=== PATIENT | male | born 1990 | race Two or more races ===

== ENCOUNTER 2019-06-14 10:24 | Emergency (ER) | payer OTHER ==
[~2019-06-14] VITALS: Ht 177.8 cm; Wt 95.3 kg
[2019-06-14] MEDS ORDERED: LANTUS SOL100 UNIT/1 (10:47)
[2019-06-14] MEDS ORDERED: HUMALOG KW100 UNIT/1 (10:47)
== END 2019-06-14 14:46 | disposition home or self-care (01) ==
LOC: ER 10:24
DX: S82.65XA Nondisplaced fracture of lateral malleolus of left fibula, initial encounter for closed fracture (principal); X50.0XXA Overexertion from strenuous movement or load, initial encounter; Y93.89 Activity, other specified; Y92.89 Other specified places as the place of occurrence of the external cause; Y99.8 Other external cause status

== ENCOUNTER 2024-05-25 10:27 | Emergency (ER) | payer OTHER ==
[~2024-05-25] VITALS: Ht 167.6 cm; Wt 89.8 kg
[~2024-05-25 10:27] MED LIST: HUMALOG KW100 UNIT/1; LANTUS SOL100 UNIT/1
[2024-05-25 12:23] LABS: HEMATOCRIT 45.5 % (39.0-48.0); HEMOGLOBIN 16.1 g/dL (13-16.00); MEAN CELL VOLUME 96.2 fL (80.0-100.00); MEAN CORPUSCULAR HEMOGLOBIN 33.9 pg (27.00-32.0); MEAN CORPUSCULAR HGB CONC 35.3 g/dl (32.0-36.0); PLATELET COUNT 231 K/uL (150-450); RED BLOOD COUNT 4.73 M/uL (4.00-6.00)
[2024-05-25] MEDS ORDERED: KETOROLAC TROMETHAMINE 60 MG VIAL IM ONE ×2 (12:52→13:00)
[2024-05-25 12:53] LABS: ALBUMIN 4.1 gm/dL (3.4-5.0); BILIRUBIN TOTAL 0.79 mg/dL (0.3-1.2); BILIRUBIN,CONJUGATED 0.21 mg/dL (0.0-0.2); BILIRUBIN,UNCONJUGATED 0.58 mg/dL (0.0-0.6); CALCIUM 9.9 mg/dL (8.5-10.1); CREATININE SERUM 1.17 mg/dL (0.70-1.30); GFR 72.24; POTASSIUM 4.5 mEq/L (3.5-5.1); TOTAL PROTEIN 7.3 gm/dL (6.4-8.2)
[2024-05-26] MEDS ORDERED: CARAFATE1 GM/10 ML PO (14:23)
[2024-05-26] MEDS ORDERED: ONDANSETRON ODT4 MG PO (14:23)
== END 2024-05-25 15:21 | disposition home or self-care (01) ==
LOC: ER 10:28
PROVIDERS: General Practice
DX: K29.70 Gastritis, unspecified, without bleeding (principal); R10.11 Right upper quadrant pain; Z91.013 Allergy to seafood; E11.65 Type 2 diabetes mellitus with hyperglycemia; Z79.4 Long term (current) use of insulin

== ENCOUNTER 2024-05-26 09:08 | Emergency (ER) | payer OTHER ==
[~2024-05-26] VITALS: Ht 177.8 cm; Wt 89.8 kg
[2024-05-26] MEDS ORDERED: FAMOTIDINE/PF 20 MG/2 ML VIAL IV ONE (09:45)
[2024-05-26] MEDS ORDERED: ONDANSETRON HCL 2 MG/ML VIAL IV ONE (09:45)
[2024-05-26] MEDS ORDERED: 0.9 % SODIUM CHLORIDE 500 ML IV SCH (09:45)
[2024-05-26] MEDS ORDERED: ONDANSETRON HCL 2 MG/ML VIAL ONE (09:51)
[2024-05-26] MEDS ORDERED: FAMOTIDINE/PF 20 MG/2 ML VIAL ONE (09:51)
[2024-05-26] MEDS ORDERED: MORPHINE SULFATE 2 MG/ML CARTRIDGE IV ONE (11:45)
[2024-05-26 11:46] LABS: HEMATOCRIT 44.9 % (39.0-48.0); HEMOGLOBIN 15.7 g/dL (13-16.00); MEAN CELL VOLUME 95.7 fL (80.0-100.00); MEAN CORPUSCULAR HEMOGLOBIN 33.4 pg (27.00-32.0); MEAN CORPUSCULAR HGB CONC 34.9 g/dl (32.0-36.0); PLATELET COUNT 277 K/uL (150-450); RED CELL DISTRIBUTION WIDTH 12.6 % (11.5-14.5)
[2024-05-26 12:39] LABS: URINE APPEARANCE Clear; URINE BILIRRUBIN Negative (NEGATIVE); URINE BLOOD Negative; URINE COLOR Yellow; URINE LEUKOCYTE Negative; URINE NITRATE Negative; URINE PROTEIN Negative (NEGATIVE); URINE UROBILINOGEN 0.2 E.U./dl
[2024-05-26 12:43] LABS: URINE BACTERIA 35.2 uL (0.0-1933); URINE EPITHELIAL CELLS 3.2 uL (0.0-38.8); URINE WBC 8.6 uL (0.0-23.2)
[2024-05-26 12:49] LABS: URINE GLUCOSE >=1000 MG/DL (NEGATIVE); URINE RBC 0.9 uL (0.0-20.8)
[2024-05-26 13:33] LABS: CALCIUM 9.8 mg/dL (8.5-10.1); CREATININE SERUM 1.16 mg/dL (0.70-1.30); GFR 72.96; POTASSIUM 4.67 mEq/L (3.5-5.1)
[2024-05-26] MEDS ORDERED: CARAFATE1 GM/10 ML PO (14:23)
[2024-05-26] MEDS ORDERED: ONDANSETRON ODT4 MG PO (14:23)
== END 2024-05-26 14:39 | disposition home or self-care (01) ==
LOC: ER 09:09
PROVIDERS: General Practice
DX: K52.89 Other specified noninfective gastroenteritis and colitis (principal); R10.9 Unspecified abdominal pain; E11.9 Type 2 diabetes mellitus without complications; Z79.4 Long term (current) use of insulin; Z91.013 Allergy to seafood

== ENCOUNTER 2025-03-01 17:43 | Emergency (ER) | payer OTHER ==
[~2025-03-01] VITALS: Ht 177.8 cm; Wt 94.3 kg
[~2025-03-01 17:43] MED LIST changes: +CARAFATE1 GM/10 ML PO; +ONDANSETRON ODT4 MG PO
[2025-03-01] MEDS ORDERED: ALPRAZOLAM2 MG PO (18:57)
[2025-03-01] MEDS ORDERED: HUMALOG100 UNIT/2 SQ (18:57)
[2025-03-01] MEDS ORDERED: PANTOPRAZOLE SODIUM 40 MG/VIAL VIAL IV ONE (19:15)
[2025-03-01] MEDS ORDERED: KETOROLAC TROMETHAMINE 30 MG VIAL IV ONE (19:15)
[2025-03-01] MEDS ORDERED: 0.9 % SODIUM CHLORIDE 1,000 ML IV ONE (19:15)
[2025-03-01] MEDS ORDERED: KETOROLAC TROMETHAMINE 30 MG VIAL ONE (20:26)
[2025-03-01 20:29] LABS: HEMATOCRIT 46.5 % (39.0-48.0); HEMOGLOBIN 15.9 g/dL (13-16.00); MEAN CELL VOLUME 94.9 fL (80.0-100.00); MEAN CORPUSCULAR HEMOGLOBIN 32.5 pg (27.00-32.0); MEAN CORPUSCULAR HGB CONC 34.3 g/dl (32.0-36.0); PLATELET COUNT 237 K/uL (150-450); RED BLOOD COUNT 4.89 M/uL (4.00-6.00); RED CELL DISTRIBUTION WIDTH 12.7 % (11.5-14.5)
[2025-03-01 20:47] LABS: INR 1.11; PARTIAL THROMBOPLASTIN TIME 25.5 SECONDS (22.0-34.0)
[2025-03-01 20:51] LABS: ALBUMIN 4.1 gm/dL (3.4-5.0); BILIRUBIN TOTAL 0.77 mg/dL (0.3-1.2); CALCIUM 9.4 mg/dL (8.5-10.1); CREATININE SERUM 1.18 mg/dL (0.70-1.30); GFR 71.54; GLOBULINA 3.1 G/DL (2.4-3.5); POTASSIUM 3.54 mEq/L (3.5-5.1); TOTAL PROTEIN 7.2 gm/dL (6.4-8.2)
[2025-03-01] MEDS ORDERED: KETO10TA2 PO (22:14)
== END 2025-03-01 22:48 | disposition home or self-care (01) ==
LOC: ER 17:44
PROVIDERS: General Practice
DX: K81.9 Cholecystitis, unspecified (principal); E11.9 Type 2 diabetes mellitus without complications; Z79.4 Long term (current) use of insulin; Z91.013 Allergy to seafood

== ENCOUNTER 2025-04-05 13:37 | Inpatient (IN) | payer OTHER ==
[~2025-04-05] VITALS: Ht 177.8 cm; Wt 201.8 kg
[~2025-04-05 13:37] MED LIST changes: +ALPRAZOLAM2 MG PO; +HUMALOG100 UNIT/2 SQ; +KETO10TA2 PO
[2025-04-05] MEDS ORDERED: LANTUS SOL100 UNIT/1 SQ (14:09)
--- NOTE | 2025-04-05 14:12 | NUR ---
PACIENTE ALERTA Y ORIENTADO X3 REFIERE DOLOR ABDONAL, VOMITOS Y FIEBRE DESDE JOCELYNE. SE REALIZA DXT A PACIENTE REFLEJA VALOR DE 89 Y PTE SE ADMINISTRA INSULINA EN AREA DE TRIAGE.
[2025-04-05] MEDS ORDERED: ONDANSETRON HCL 2 MG/ML VIAL IV ONE (15:00)
[2025-04-05] MEDS ORDERED: FAMOTIDINE/PF 20 MG/2 ML VIAL IV ONE (15:00)
[2025-04-05] MEDS ORDERED: 0.9 % SODIUM CHLORIDE 1,000 ML IV ONE (15:00)
[2025-04-05] MEDS ORDERED: MORPHINE SULFATE 4 MG/ML VIAL IV STA (15:01)
--- NOTE | 2025-04-05 15:27 | NUR ---
SE REALIZA LAB Y SE ADMINISTRA TX EDWIN ORDEN MEDICA BAJO MEDIDAS ASEPTICAS. SE ORIENTA PTE QUIEN REFIERE ENTENDER Y ACEPTAR.
[2025-04-05] MEDS ORDERED: ONDANSETRON HCL 2 MG/ML VIAL ONE (15:35)
[2025-04-05] MEDS ORDERED: FAMOTIDINE/PF 20 MG/2 ML VIAL ONE (15:36)
[2025-04-05 15:48] LABS: BASO % 0.8 % (0.1-1.2); EOS # 0.22 (0.04-0.54); EOS % 2.2 % (0.7-7.0); HEMATOCRIT 42.2 % (40.1-51.0); HEMOGLOBIN 15.1 g/dL (13.7-17.5); LYMPH # 1.99 (1.18-3.74); LYMPH % 19.5 % (19.3-53.1); MEAN CORPUSCULAR HEMOGLOBIN 32.1 pg (25.6-32.2); MONO # 0.71 (0.24-0.82); NEUT # 7.16 (1.56-6.13); NEUT % 70.2 % (34.0-71.1); PLATELET COUNT 249 K/uL (163-369); RED CELL DISTRIBUTION WIDTH 11.5 % (11.6-14.4)
[2025-04-05 15:56] LABS: INR 1.11; PARTIAL THROMBOPLASTIN TIME 25.3 SECONDS (22.0-34.0)
[2025-04-05 16:01] LABS: ALBUMIN 4.1 gm/dL (3.4-5.0); BILIRUBIN TOTAL 0.74 mg/dL (0.3-1.2); BILIRUBIN,CONJUGATED 0.2 mg/dL (0.0-0.2); BILIRUBIN,UNCONJUGATED 0.54 mg/dL (0.0-0.6); CALCIUM 9.8 mg/dL (8.5-10.1); CREATININE SERUM 1.15 mg/dL (0.70-1.30); GFR 73.69; GLOBULINA 3.2 G/DL (2.4-3.5); POTASSIUM 4.22 mEq/L (3.5-5.1); TOTAL PROTEIN 7.3 gm/dL (6.4-8.2)
[2025-04-05 16:46] LABS: PH,URINE 5.5 (5.0-8.0); URINE APPEARANCE Clear; URINE BILIRRUBIN Moderate (NEGATIVE); URINE BLOOD Negative; URINE COLOR Dark Yellow; URINE LEUKOCYTE Trace; URINE NITRATE Negative; URINE PROTEIN 30 (NEGATIVE)
[2025-04-05 16:47] LABS: URINE BACTERIA 13.4 uL (0.0-1933); URINE RBC 6.9 uL (0.0-20.8); URINE WBC 4.9 uL (0.0-23.2)
[2025-04-05 16:55] LABS: URINE CAST 0.58 uL (0.0-1.40); URINE GLUCOSE >=1000 MG/DL (NEGATIVE); URINE KETONE >=160 (NEGATIVE)
[2025-04-05] MEDS ORDERED: PANTOPRAZOLE SODIUM 40 MG/VIAL VIAL IV ONE (17:00)
[2025-04-05] MEDS ORDERED: PIPERACILLIN/TAZOBACTAM SODIUM 3.375 GM VIAL IV ONE ×2 (18:45→19:17)
[2025-04-05] MEDS ORDERED: ONDANSETRON HCL 4 MG in 0.9 % SODIUM CHLORIDE 50 ML IV PRN (20:45)
[2025-04-05] MEDS ORDERED: MORPHINE SULFATE 2 MG/ML CARTRIDGE IV PRN (20:45)
[2025-04-05] MEDS ORDERED: 0.9 % SODIUM CHLORIDE 1,000 ML IV SCH (20:45)
[2025-04-05] MEDS ORDERED: ACETAMINOPHEN 500 MG GEL..CAP PO PRN (20:45)
[2025-04-06] MEDS ORDERED: PIPERACILLIN/TAZOBACTAM SODIUM 3.375 GM in DEXTROSE 5 % IN WATER 100 ML IV SCH
[2025-04-06] MEDS ORDERED: PIPERACILLIN/TAZOBACTAM SODIUM 3.375 GM VIAL IV ONE (02:36)
[2025-04-06 04:00] VITALS: BP 118/82; O2SAT 97
[2025-04-06 08:00] VITALS: BP 125/71; O2SAT 98
[2025-04-06] MEDS ORDERED: INSULIN GLARGINE,HUM.REC.ANLOG 1,000 UNITS/10 ML UNITS SUBCUTANEO SCH (09:00)
[2025-04-06] MEDS ORDERED: FAMOTIDINE/PF 20 MG in 0.9 % SODIUM CHLORIDE 8 ML IV PUSH SCH (09:00)
[2025-04-06] MEDS ORDERED: BUPIVACAINE HCL/Mpf 0.5% 10ML VIAL ONE (11:03)
[2025-04-06] MEDS ORDERED: LIDOCAINE HCL 1% 10ML VIAL ONE (11:03)
[2025-04-06] MEDS ORDERED: CEFAZOLIN SODIUM 1,000 MG VIAL ONE (11:08)
[2025-04-06] MEDS ORDERED: METHYLPREDNISOLONE SOD SUCC 125 MG VIAL ONE (11:17)
[2025-04-06] MEDS ORDERED: BUPIVACAINE HCL/MPF 0.5% 30ML VIAL ONE (11:27)
[2025-04-06] MEDS ORDERED: LIDOCAINE HCL 1% 20 ML VIAL IJ ONE (11:27)
[2025-04-06] MEDS ORDERED: INSULIN LISPRO 1,000 UNIT/10 ML UNITS SUBCUTANEO SCH (12:00)
[2025-04-06] MEDS ORDERED: hydrALAZINE HCL 20 MG VIAL ONE (12:30)
[2025-04-06] MEDS ORDERED: SUGAMMADEX SODIUM 200 MG/2 ML VIAL IV ONE (12:40)
[2025-04-06] MEDS ORDERED: MORPHINE SULFATE 4 MG/ML CARTRIDGE IV PRN (13:04)
[2025-04-06] MEDS ORDERED: MORPHINE SULFATE 4 MG/ML VIAL IV ONE (14:05)
[2025-04-06] MEDS ORDERED: INSULIN LISPRO 1,000 UNIT/10 ML UNITS SUBCUTANEO ONE (14:22)
[2025-04-06] MEDS ORDERED: GABAPENTIN 300 MG CAPSULE PO SCH (17:00)
[2025-04-06 17:27] VITALS: BP 137/81
[2025-04-06] MEDS ORDERED: INSULIN LISPRO 1,000 UNIT/10 ML UNITS SUBCUTANEO PRN (21:45)
[2025-04-06] MEDS ORDERED: DEXTROSE 50 % IN WATER 0.5 G/ML VIAL IV PRN (21:45)
[2025-04-07 01:44] VITALS: BP 148/83
[2025-04-07] MEDS ORDERED: KETOROLAC TROMETHAMINE 15 MG VIAL IV STA (04:22)
[2025-04-07] MEDS ORDERED: KETOROLAC TROMETHAMINE 30 MG VIAL IV PRN (04:30)
[2025-04-07] MEDS ORDERED: INSULIN LISPRO 1,000 UNIT/10 ML UNITS SUBCUTANEO SCH (08:00)
[2025-04-07] MEDS ORDERED: ENOXAPARIN SODIUM 40 MG/0.4 ML SYRINGE SUBCUTANEO SCH (09:00)
[2025-04-07 10:16] VITALS: BP 126/70; O2SAT 97
[2025-04-07] MEDS ORDERED: SIMETHICONE 125 MG CAPSULE PO SCH (13:00)
[2025-04-07] MEDS ORDERED: SUCRALFATE 1 G TABLET PO SCH (13:00)
[2025-04-07] MEDS ORDERED: ACETAMINOPHEN 500 MG GEL..CAP PO SCH (14:00)
[2025-04-07] MEDS ORDERED: PANTOPRAZOLE SODIUM 40 MG/VIAL VIAL IV SCH (17:00)
[2025-04-07 17:14] VITALS: BP 122/72
[2025-04-07] MEDS ORDERED: INSULIN GLARGINE,HUM.REC.ANLOG 1,000 UNITS/10 ML UNITS SUBCUTANEO SCH (21:00)
[2025-04-08 01:17] VITALS: BP 134/76
[2025-04-08 09:44] VITALS: BP 142/84; O2SAT 97
[2025-04-08] MEDS ORDERED: INSULIN NPH HUMAN ISOPHANE 1,000 UNITS/10 ML UNITS SUBCUTANEO STA (10:56)
[2025-04-09 07:11] LABS: hav igm Negative (Negative); hcv Non Reactive (Non Reactive); hep b c Negative (Negative); hep b s ag Negative (Negative)
== END 2025-04-08 13:29 | disposition home or self-care (01) | DRG 418 ==
LOC: ER 13:37 → MEDI 21:29
PROVIDERS: General Practice; Student in an Organized Health Care Education/Training Program; ADMIT Internal Medicine; ATTEND Internal Medicine
PROC: BW40ZZZ Ultrasonography of Abdomen (ICD-10-PCS; 2025-04-05)
PROC: BF532Z0 Other Imaging of Gallbladder and Bile Ducts using Fluorescing Agent, Intraoperative (ICD-10-PCS; 2025-04-06)
PROC: 041 Lower Arteries, Bypass (ICD-10-PCS; 2025-04-06)
PROC: 0FT44ZZ Resection of Gallbladder, Percutaneous Endoscopic Approach (ICD-10-PCS; principal; 2025-04-06 07:00)
DX: K80.10 Calculus of gallbladder with chronic cholecystitis without obstruction (principal); A00-B99 Certain infectious and parasitic diseases; E86.0 Dehydration; Z79.4 Long term (current) use of insulin; F12.90 Cannabis use, unspecified, uncomplicated; E10.9 Type 1 diabetes mellitus without complications

== ENCOUNTER 2025-04-19 10:08 | Emergency (ER) | payer OTHER ==
[~2025-04-19] VITALS: Ht 177.8 cm; Wt 87.5 kg
[~2025-04-19 10:08] MED LIST changes: +LANTUS SOL100 UNIT/1 SQ
[2025-04-19 10:24] VITALS: O2SAT 98
[2025-04-19] MEDS ORDERED: 0.9 % SODIUM CHLORIDE 1,000 ML IV STA (10:52)
[2025-04-19] MEDS ORDERED: FAMOTIDINE/PF 20 MG/2 ML VIAL IV ONE (11:00)
[2025-04-19] MEDS ORDERED: FAMOTIDINE/PF 20 MG/2 ML VIAL ONE (11:11)
[2025-04-19 11:52] LABS: BASO % 0.9 % (0.1-1.2); EOS # 0.41 (0.04-0.54); EOS % 3.6 % (0.7-7.0); HEMATOCRIT 42.2 % (40.1-51.0); HEMOGLOBIN 15.2 g/dL (13.7-17.5); LYMPH # 2.19 (1.18-3.74); LYMPH % 19.5 % (19.3-53.1); MEAN CORPUSCULAR HEMOGLOBIN 31.8 pg (25.6-32.2); MONO # 0.78 (0.24-0.82); MONO % 6.9 % (4.7-12.5); NEUT # 7.73 (1.56-6.13); NEUT % 68.8 % (34.0-71.1); PLATELET COUNT 298 K/uL (163-369); RED BLOOD COUNT 4.78 M/uL (4.63-6.08); RED CELL DISTRIBUTION WIDTH 11.9 % (11.6-14.4)
[2025-04-19 12:15] LABS: BILIRUBIN TOTAL 0.54 mg/dL (0.3-1.2); CALCIUM 9.2 mg/dL (8.5-10.1); CREATININE SERUM 0.95 mg/dL (0.70-1.30); GFR 91.3; GLOBULINA 3.2 G/DL (2.4-3.5); POTASSIUM 4.01 mEq/L (3.5-5.1); TOTAL PROTEIN 7.2 gm/dL (6.4-8.2)
[2025-04-19] MEDS ORDERED: MORPHINE SULFATE 4 MG/ML VIAL IV ONE ×2 (12:15→15:30)
[2025-04-19] MEDS ORDERED: METOCLOPRAMIDE HCL 10 MG in DEXTROSE 5 % IN WATER 50 ML IV ONE (12:15)
[2025-04-19 13:03] LABS: PH,URINE 6.5 (5.0-8.0); URINE APPEARANCE Clear; URINE BILIRRUBIN Negative (NEGATIVE); URINE BLOOD Negative; URINE COLOR Dark Yellow; URINE GLUCOSE Negative (NEGATIVE); URINE KETONE Trace (NEGATIVE); URINE LEUKOCYTE Trace; URINE NITRATE Negative; URINE PROTEIN Trace (NEGATIVE)
[2025-04-19] MEDS ORDERED: METOCLOPRAMIDE HCL 5 MG/ML VIAL ONE (13:03)
[2025-04-19 13:07] LABS: URINE BACTERIA 6.1 uL (0.0-1933); URINE EPITHELIAL CELLS 2.2 uL (0.0-38.8); URINE WBC 4.8 uL (0.0-23.2)
[2025-04-19 13:23] LABS: URINE RBC 1.3 uL (0.0-20.8)
[2025-04-19 16:03] VITALS: BP 146/90
[2025-04-19] MEDS ORDERED: ONDANSETRON HCL 2 MG/ML VIAL ONE (16:09)
[2025-04-19] MEDS ORDERED: PANTOPRAZOLE SODIUM 40 MG in 0.9 % SODIUM CHLORIDE 8 ML IV PUSH STA (16:09)
[2025-04-19] MEDS ORDERED: ONDANSETRON HCL 2 MG/ML VIAL IV ONE (16:15)
[2025-04-19] MEDS ORDERED: LEVSIN/SL0.125 MG SL (17:31)
[2025-04-19] MEDS ORDERED: ONDANSETRON ODT8 MG PO (17:31)
[2025-04-19] MEDS ORDERED: OMEPRAZOLE40 MG PO (17:31)
== END 2025-04-19 17:52 | disposition home or self-care (01) ==
LOC: ER 10:08
PROVIDERS: Emergency Medicine
DX: E11.43 Type 2 diabetes mellitus with diabetic autonomic (poly)neuropathy (principal); K31.84 Gastroparesis; Z79.4 Long term (current) use of insulin; Z91.013 Allergy to seafood

== ENCOUNTER → 2025-09-26 | Emergency (ER) | payer OTHER ==
[~2025-09-26] MED LIST changes: +LEVSIN/SL0.125 MG SL; +NPH; +OMEPRAZOLE40 MG PO; +ONDANSETRON ODT8 MG PO
== END | disposition left against medical advice (07) ==
LOC: ER 10:35
DX: Z53.21 Procedure and treatment not carried out due to patient leaving prior to being seen by health care provider (principal)

== ENCOUNTER 2025-10-09 22:14 | Emergency (ER) | payer OTHER ==
[~2025-10-09] VITALS: Ht 177.8 cm; Wt 88.5 kg
[~2025-10-09 22:14] MED LIST changes: -INTESTINEX680 M2 PO; -KETOROLAC TROMETHAMINE 30 MG VIAL ONE; -METOCLOPRAMIDE10 GM MC; -PEPCID AC20 MG PO
[2025-10-09] MEDS ORDERED: METOCLOPRAMIDE10 GM MC (23:02)
[2025-10-10] MEDS ORDERED: HYOSCYAMINE SULFATE 0.125 MG TAB.SUBL SL STA (00:23)
[2025-10-10] MEDS ORDERED: PROMETHAZINE HCL 50 MG/ML AMPUL IM STA (00:24)
[2025-10-10] MEDS ORDERED: LACTOBACILLUS ACIDOPHILUS 1 CAP CAP PO STA (00:24)
[2025-10-10] MEDS ORDERED: FAMOTIDINE/PF 20 MG/2 ML VIAL IV PUSH STA (00:24)
[2025-10-10] MEDS ORDERED: 0.9 % SODIUM CHLORIDE 1,000 ML IV ONE (00:30)
[2025-10-10] MEDS ORDERED: HYOSCYAMINE SULFATE 0.125 MG TAB.SUBL ONE (01:21)
[2025-10-10] MEDS ORDERED: PROMETHAZINE HCL 50 MG/ML AMPUL IM ONE (01:21)
[2025-10-10] MEDS ORDERED: FAMOTIDINE/PF 20 MG/2 ML VIAL ONE (01:22)
[2025-10-10] MEDS ORDERED: LACTOBACILLUS ACIDOPHILUS 1 CAP CAP PO ONE (01:22)
[2025-10-10 02:57] LABS: BASO % 0.6 % (0.1-1.2); EOS # 0.07 (0.04-0.54); EOS % 0.5 % (0.7-7.0); LYMPH # 1.65 (1.18-3.74); LYMPH % 12.2 % (19.3-53.1); MEAN PLATELET VOLUME 10.50 fl (9.4-12.4); MONO # 1.04 (0.24-0.82); MONO % 7.7 % (4.7-12.5); NEUT # 10.59 (1.56-6.13); NEUT % 78.7 % (34.0-71.1); RED CELL DISTRIBUTION WIDTH 11.6 % (11.6-14.4)
[2025-10-10 03:26] LABS: ALT/SGPT 60.0 U/L (12-78); AST/SGOT 25.0 U/L (15-37); BILIRUBIN TOTAL 0.83 mg/dL (0.3-1.2); BUN CREA RATIO 7.0 (7.0-25.0); CREATININE SERUM 1.14 mg/dL (0.70-1.30); GFR 73.98; GLOBULINA 3.0 G/DL (2.4-3.5); OSMOLALITY SERUM 282.0 MOSM/KG (275-295)
[2025-10-10 03:28] LABS: GLUCOSE FASTING 305.0 mg/dL (65-100)
[2025-10-10] MEDS ORDERED: INSULIN REGULAR, HUMAN 1,000 UNIT/10 ML UNITS IV STA (05:31)
[2025-10-10] MEDS ORDERED: KETOROLAC TROMETHAMINE 30 MG VIAL IV STA (05:31)
[2025-10-10 06:13] LABS: URINE APPEARANCE Clear; URINE BILIRRUBIN Negative (NEGATIVE); URINE BLOOD Negative; URINE COLOR Dark Yellow; URINE LEUKOCYTE Negative; URINE NITRATE Negative; URINE PROTEIN Trace (NEGATIVE); URINE UROBILINOGEN 1.0 E.U./dl
[2025-10-10 06:17] LABS: URINE EPITHELIAL CELLS 1.8 uL (0.0-38.8)
[2025-10-10 06:33] LABS: URINE BACTERIA 1.1 uL (0.0-1933); URINE CAST 0.14 uL (0.0-1.40); URINE GLUCOSE 250 MG/DL (NEGATIVE); URINE KETONE 80 (NEGATIVE); URINE RBC 1.6 uL (0.0-20.8); URINE WBC 0.4 uL (0.0-23.2)
[2025-10-10] MEDS ORDERED: INTESTINEX680 M2 PO (10:56)
[2025-10-10] MEDS ORDERED: PEPCID AC20 MG PO (10:56)
== END 2025-10-10 11:32 | disposition home or self-care (01) ==
LOC: ER 22:14
PROVIDERS: General Practice
DX: K52.89 Other specified noninfective gastroenteritis and colitis (principal); E86.0 Dehydration; Z91.013 Allergy to seafood

== ENCOUNTER → 2025-10-09 | Emergency (ER) | payer OTHER ==
[~2025-10-09] MED LIST changes: +INTESTINEX680 M2 PO; +KETOROLAC TROMETHAMINE 30 MG VIAL ONE; +METOCLOPRAMIDE10 GM MC; +PEPCID AC20 MG PO
== END | disposition left against medical advice (07) ==
LOC: ER 19:18
DX: Z53.21 Procedure and treatment not carried out due to patient leaving prior to being seen by health care provider (principal)